=== PATIENT | male | born 1950 | race Caucasian/White ===

== ENCOUNTER 2017-11-09 23:08 | Emergency (ER) | payer MEDICARE, OTHER ==
--- NOTE | 2017-11-09 23:35 | EDM.PDOC ---
ED HPI GENERAL MEDICAL PROBLEM - General Chief Complaint: Lower Extremity Injury/Pain Stated Complaint: TOE INJURY Time Seen by Provider: 11/09/17 23:30 Source of Information: Reports: Patient History Limitations: Reports: No Limitations - History of Present Illness INITIAL COMMENTS - FREE TEXT/NARRATIVE: Cutting board fell onto right 4th toe @1500 today, patient didn't notice an injury until this evening. Right 4th toenail was hanging, patient pulled it off. Area is bruised and bleeding, patient has only minimal pain to the area. He is a type 2 diabetic. Tetanus is UTD. Onset Date: 11/09/17 Duration: Hour(s): (8) Location: Reports: Lower Extremity, Right Severity: Mild right forth and fifth toe Pain Score (Numeric/FACES): 3 - Related Data Allergies Allergy/AdvReac Type Severity Reaction Status Date / Time Penicillins Allergy Other Verified 11/09/17 23:37 Home Meds: Home Meds Aspirin 325 mg PO DAILY 11/09/17 [History] Clindamycin HCl 300 mg PO QID #28 capsule 11/09/17 [Rx] Lisinopril 0 mg PO DAILY 11/09/17 [History] Losartan [Cozaar] 0 mg PO BEDTIME 11/09/17 [History] Magnesium Amino Acid Chelate [Magnesium] 0 mg PO BEDTIME 11/09/17 [History] metFORMIN [Glucophage] 1,000 mg PO BID 11/09/17 [History] Past Medical History Cardiovascular History: Reports: High Cholesterol, Hypertension Neurological History: Reports: CVA Endocrine/Metabolic History: Reports: Diabetes, Type II Social & Family History - Tobacco Use Smoking Status *Q: Former Smoker Tobacco Use Within Last Twelve Months: No Review of Systems - Review of Systems Review Of Systems: ROS reveals no pertinent complaints other than HPI. ED EXAM, GENERAL - Physical Exam Exam: See Below Exam Limited By: No Limitations General Appearance: Alert, WD/WN, No Apparent Distress Nose: Normal Inspection Throat/Mouth: No Airway Compromise Head: Atraumatic, Normocephalic Neck: Full Range of Motion Respiratory/Chest: No Respiratory Distress Peripheral Pulses: 2+: Dorsalis Pedis (R) Extremities: Other (right 4th toenail avulsion, nailbed is oozing blood, ecchymosis present to distal phalanx of right 4th toe) Neurological: Alert, No Motor/Sensory Deficits Psychiatric: Normal Affect, Normal Mood Skin Exam: Other (as above) Course - Vital Signs Last Recorded V/S: Last Vital Signs Temp 36.6 C 11/09/17 23:08 Pulse 82 11/09/17 23:08 Resp 20 11/09/17 23:08 BP 137/106 H 11/09/17 23:08 Pulse Ox 100 11/09/17 23:08 - Orders/Labs/Meds Orders: Active Orders 24 hr Category Date Time Status Foot Comp Min 3V Rt [CR] Stat Exams 11/09/17 23:22 Taken Toes Fourth Digit Rt T8 [CR] Stat Exams 11/09/17 23:31 Ordered Toes Multiple Rt [CR] Stat Exams 11/09/17 23:24 Stop Req - Radiology Interpretation Free Text/Narrative:: Right Foot XR: no acute fracture, no radiopaque foreign body (ED Provider interpretation) Departure - Departure Time of Disposition: 23:56 Disposition: Home, Self-Care 01 Condition: Good Clinical Impression: Avulsion of toenail of right foot Contusion of toe of right foot Qualifiers: Encounter type: initial encounter Toe: unspecified toe Qualified Code(s): S90.121A - Contusion of right lesser toe(s) without damage to nail, initial encounter - Discharge Information *PRESCRIPTION DRUG MONITORING PROGRAM REVIEWED*: No *COPY OF PRESCRIPTION DRUG MONITORING REPORT IN PATIENT MICHELLE: Not Applicable Prescriptions: Clindamycin HCl 300 mg PO QID #28 capsule Instructions: Nail Avulsion, Contusion, [id number] Referrals: PCP,Not In Area [Primary Care Provider] - Forms: ED Department Discharge Additional Instructions: Fill prescription for Clindamycin and take as directed. Follow up with your primary physician in 2 days. Return to the ER if symptoms worsen. - My Orders Last 24 Hours: My Active Orders 11/09/17 23:22 Foot Comp Min 3V Rt [CR] Stat 11/09/17 23:24 Toes Multiple Rt [CR] Stat 11/09/17 23:31 Toes Fourth Digit Rt T8 [CR] Stat - Assessment/Plan Last 24 Hours: My Active Orders 11/09/17 23:22 Foot Comp Min 3V Rt [CR] Stat 11/09/17 23:24 Toes Multiple Rt [CR] Stat 11/09/17 23:31 Toes Fourth Digit Rt T8 [CR] Stat
[2017-11-09] MEDS ORDERED: Clindamycin HCl 150 MG Cap PO ONE (23:55)
--- NOTE | 2017-11-12 11:12 | CR ---
INDICATION: Right fourth toe injury. RIGHT FOURTH TOE: Three views of the right fourth toe revealed comminuted fracture of the shaft and especially the ungual tuft of the distal phalanx of the fourth toe. Position and alignment of the fracture fragments appears to be adequate. No other acute bone or joint abnormality was seen. IMPRESSION: Distal phalangeal fourth toe fracture. Adequate position and alignment suggested. [facility]
== END 2017-11-10 00:20 | disposition home or self-care (01) ==
LOC: FB.ED 23:08
DX: S91.204A Unspecified open wound of right lesser toe(s) with damage to nail, initial encounter (principal); S90.121A Contusion of right lesser toe(s) without damage to nail, initial encounter; E11.9 Type 2 diabetes mellitus without complications; I10 Essential (primary) hypertension; Z88.0 Allergy status to penicillin; Z79.899 Other long term (current) drug therapy; Z79.82 Long term (current) use of aspirin; W20.8XXA Other cause of strike by thrown, projected or falling object, initial encounter
CPT/HCPCS: 73660; 99283; A9270; 73630-RT